=== PATIENT | female | born 1975 | race Caucasian/White ===

== ENCOUNTER 2022-12-26 15:35 | Emergency (ER) | payer BC, MEDICAID ==
[2022-12-26] MEDS ORDERED: Ondansetron 4 MG/2 ML SDV IVPUSH ONE (16:16)
[2022-12-26] MEDS ORDERED: Sodium Chloride 0.9% 1,000 ML IV SCH (16:30)
[2022-12-26] MEDS ORDERED: Labetalol 100 MG/20 ML MDV IVPUSH ONE (16:36)
[2022-12-26] MEDS ORDERED: Iopamidol 612 MG/ML 100 ML Bottle IVPUSH ONE (17:15)
[2022-12-26] MEDS ORDERED: Sodium Chloride 0.9% 10 ML Syringe FLUSH ONE (17:15)
[2022-12-26] MEDS ORDERED: Levofloxacin 750 MG Tab PO STA (17:55)
[2022-12-26] MEDS ORDERED: metroNIDAZOLE 500 MG Tab PO STA (17:56)
== END 2022-12-26 18:15 | disposition left against medical advice (07) ==
LOC: JD.ED 15:35
DX: K04.7 Periapical abscess without sinus (principal); I12.9 Hypertensive chronic kidney disease with stage 1 through stage 4 chronic kidney disease, or unspecified chronic kidney disease; N18.9 Chronic kidney disease, unspecified; E66.9 Obesity, unspecified; Z68.37 Body mass index [BMI] 37.0-37.9, adult; Z88.0 Allergy status to penicillin; Z88.8 Allergy status to other drugs, medicaments and biological substances; Z72.0 Tobacco use
CPT/HCPCS: 70491; 96361; 96374; 96375; 99283; J2405; J3490; J7030; Q9967; 99284

== ENCOUNTER 2023-03-16 17:23 | Emergency (ER) | payer MEDICAID ==
[2023-03-16] MEDS ORDERED: Acetaminophen/HYDROcodone 325-5 MG Tab PO ONE (17:59)
== END 2023-03-16 18:38 | disposition home or self-care (01) ==
LOC: JD.ED 17:23
DX: K08.89 Other specified disorders of teeth and supporting structures (principal); I10 Essential (primary) hypertension; K21.9 Gastro-esophageal reflux disease without esophagitis; E66.9 Obesity, unspecified; Z68.34 Body mass index [BMI] 34.0-34.9, adult; Z72.0 Tobacco use; Z88.0 Allergy status to penicillin; Z88.8 Allergy status to other drugs, medicaments and biological substances; Z79.899 Other long term (current) drug therapy
CPT/HCPCS: 99283; A9270; 99282

== ENCOUNTER 2023-03-18 12:45 | Emergency (ER) | payer MEDICAID ==
[2023-03-18] MEDS ORDERED: Ondansetron 4 MG Tab.DIS PO ONE (13:04)
[2023-03-18] MEDS ORDERED: Sodium Chloride 0.9% 1,000 ML IV ONE (13:43)
[2023-03-18] MEDS ORDERED: Sodium Chloride 0.9% 10 ML Syringe FLUSH PRN ×2 (13:43→14:24)
[2023-03-18 14:24] LABS: APPEARANCE,URINE CLEAR (Clear); BILIRUBIN,URINE NEGATIVE (Negative); COLOR,URINE DARK YELLOW (Yellow); GLUCOSE,URINE NEGATIVE (Negative); KETONES,URINE NEGATIVE (Negative); LEUKOCYTE ESTERASE,URINE NEGATIVE (Negative); NITRITE,URINE NEGATIVE (Negative); OCCULT BLOOD,URINE NEGATIVE (Negative); PH,URINE 5.5 (5.0-8.0); PROTEIN,URINE 1+ (Negative); UROBILINOGEN,URINE 0.2 (0.2-1.0)
[2023-03-18] MEDS ORDERED: Iopamidol 612 MG/ML 100 ML Bottle IVPUSH ONE (14:24)
[2023-03-18 14:51] LABS: BACTERIA,URINE MODERATE /hpf (FEW); HYALINE CASTS,URINE 0-5 /lpf (0-5); MUCUS,URINE MODERATE /hpf (FEW); RBC,URINE 0-5 /hpf (0-5); WBC,URINE 0-5 /hpf (0-5)
[2023-03-18] MEDS ORDERED: diphenhydrAMINE 50 MG/ML SDV IVPUSH ONE (14:54)
[2023-03-18] MEDS ORDERED: Metoclopramide 10 MG/2 ML SDV IVPUSH ONE (14:54)
[2023-03-18] MEDS ORDERED: Famotidine 20 MG/2 ML SDV IVPUSH ONE (14:54)
== END 2023-03-18 17:05 | disposition home or self-care (01) ==
LOC: JD.ED 12:45
DX: R11.2 Nausea with vomiting, unspecified (principal); R10.13 Epigastric pain; I12.9 Hypertensive chronic kidney disease with stage 1 through stage 4 chronic kidney disease, or unspecified chronic kidney disease; N18.9 Chronic kidney disease, unspecified; K21.9 Gastro-esophageal reflux disease without esophagitis; E66.9 Obesity, unspecified; F17.210 Nicotine dependence, cigarettes, uncomplicated; Z68.36 Body mass index [BMI] 36.0-36.9, adult; Z98.890 Other specified postprocedural states; Z88.8 Allergy status to other drugs, medicaments and biological substances; Z88.6 Allergy status to analgesic agent; Z88.0 Allergy status to penicillin; Z79.899 Other long term (current) drug therapy
CPT/HCPCS: 74177; 81001; 96361; 96374; 96375; 99284; A9270; J1200; J2765; J3490; J7030; Q9967

== ENCOUNTER 2023-03-27 10:40 | Emergency (ER) | payer MEDICAID ==
[2023-03-27] MEDS ORDERED: Lidocaine 1% 10 ML MDV INJECT ONE (11:17)
[2023-03-27 12:10] LABS: BASOPHILS ABSOLUTE AUTO 0.03 K/mm3 (0.01-0.08); BASOPHILS PERCENT AUTO 0.2 % (0.1-1.2); EOSINOPHILS ABSOLUTE AUTO 0.03 K/mm3 (0.04-0.36); EOSINOPHILS PERCENT AUTO 0.2 (0.7-5.8); HEMATOCRIT 49.3 % (34.1-44.9); HEMOGLOBIN 16.7 gm/dl (11.2-15.7); IMMATURE GRAN ABSOLUTE AUTO 0.08 K/mm3 (0.00-0.10); IMMATURE GRAN PERCENT AUTO 0.6 % (<=1.0); LYMPHOCYTES ABSOLUTE AUTO 2.12 K/mm3 (1.18-3.74); LYMPHOCYTES PERCENT AUTO 16.4 % (19.3-51.7); MEAN CORPUSCULAR HGB CONC 33.9 g/dl (32.2-35.5); MEAN CORPUSCULAR VOLUME 79.8 fl (79.4-94.8); MEAN PLATELET VOLUME 10.9 fl (9.4-12.3); MONOCYTES ABSOLUTE AUTO 0.89 K/mm3 (0.24-0.36); MONOCYTES PERCENT AUTO 6.9 % (4.7-12.5); NEUTROPHILS ABSOLUTE AUTO 9.74 K/mm3 (1.56-6.13); NEUTROPHILS PERCENT AUTO 75.7 % (34.0-71.1); PLATELET COUNT,PLT 321 K/mm3 (182-369); RED BLOOD CELL COUNT 6.18 M/mm3 (3.98-5.22); WHITE BLOOD CELL COUNT,WBC 12.89 K/mm3 (3.98-10.04)
[2023-03-27 12:30] LABS: A/G RATIO 0.8 (1-2); ALBUMIN 3.6 g/dl (3.4-5.0); ANION GAP 14.7 (5-15); BILIRUBIN TOTAL 0.7 mg/dL (0.2-1.0); BUN/CREATININE RATIO 18.8 (14-18); C-REACTIVE PROTEIN 0.3 mg/dL (<1.0); CALCIUM 9.9 mg/dL (8.5-10.1); CREATININE 1.7 mg/dL (0.55-1.02); EST CRCL DRUG DOSING (CG) 40.64 mL/min; POTASSIUM,K 2.7 mEq/L (3.5-5.1); PROTEIN TOTAL,TP 8.4 g/dl (6.4-8.2)
[2023-03-27] MEDS ORDERED: Sodium Chloride 0.9% 1,000 ML IV ONE (13:06)
[2023-03-27] MEDS ORDERED: Labetalol 100 MG/20 ML MDV IVPUSH ONE (13:27)
[2023-03-27] MEDS ORDERED: Diphtheria,Pertussis(Acell),Tetanus Vaccine 0.5 ML Syringe IM ONE (13:36)
[2023-03-27] MEDS ORDERED: Iopamidol 755 Mg/ML 100 ML Bottle IVPUSH ONE (13:43)
[2023-03-27] MEDS ORDERED: Sodium Chloride 0.9% 100 ML IV SCH (13:45)
[2023-03-27] MEDS: Potassium Chloride 10 MEQ in Premix Bag 1 BAG IV SCH ×3 (14:15→18:01)
[2023-03-27] MEDS ORDERED: Dexamethasone 4 MG/ML SDV IVPUSH ONE (15:29)
[2023-03-27] MEDS ORDERED: levETIRAcetam 1,000 MG in Sodium Chloride 0.9% 100 ML IV ONE (15:29)
[2023-03-27] MEDS ORDERED: Ondansetron 4 MG/2 ML SDV IVPUSH ONE (17:34)
== END 2023-03-27 17:59 ==
LOC: JD.ED 10:40
DX: S01.81XA Laceration without foreign body of other part of head, initial encounter (principal); I61.8 Other nontraumatic intracerebral hemorrhage; I12.9 Hypertensive chronic kidney disease with stage 1 through stage 4 chronic kidney disease, or unspecified chronic kidney disease; N18.9 Chronic kidney disease, unspecified; E66.9 Obesity, unspecified; Z68.34 Body mass index [BMI] 34.0-34.9, adult; Z23 Encounter for immunization; Z98.890 Other specified postprocedural states; Z79.899 Other long term (current) drug therapy; Z88.0 Allergy status to penicillin; Z88.8 Allergy status to other drugs, medicaments and biological substances; Z88.6 Allergy status to analgesic agent; W06.XXXA Fall from bed, initial encounter
CPT/HCPCS: 12013; 36415; 70450; 80053; 80307; 85025; 86140; 90471; 90715; 96365; 96366; 96375; 99285; J1100; J1953; J2405; J3480; J3490; J7030